=== PATIENT | male | born 1990 | race Hispanic/Latino ===

== ENCOUNTER 2016-10-10 06:24 | Inpatient (IN) | payer OTHER ==
[~2016-10-10] VITALS: Ht 177.8 cm; Wt 81.6 kg
[2016-10-10 07:56] LABS: ABSOLUTE BASOPHIL COUNT 0 /CUMM (0.0-0.2); ABSOLUTE EOSINOPHIL COUNT 0 /CUMM (0.0-0.7); ABSOLUTE LYMPH COUNT 0.6 /CUMM (1.2-3.4); ABSOLUTE MONOCYTE COUNT 0.4 /CUMM (0.10-0.60); BASOPHIL % 0.2 % (0.0-2.0); EOSINOPHIL % 0 % (0-5); HEMATOCRIT 42.2 % (42-52); MEAN CORPUSCULAR HGB CONC 33.4 G/DL (33.0-37.0); MEAN CORPUSCULAR VOLUME 86.8 FL (80.0-94.0); MEAN PLATELET VOLUME 9.2 FL (7.4-10.4); RBC DISTRIBUTION WIDTH 13.2 % (11.5-14.5); RED BLOOD CELL CT 4.87 /CUMM (4.70-6.10)
[2016-10-10 08:10] LABS: GRANULOCYTE % 91.7 % (42.2-75.2); PLATELET COUNT 249 /CUMM (130-400)
--- NOTE | 2016-10-10 08:46 | RADIOLOGY REPORT ---
EXAMINATION: XR ABDOMEN WITH PA CHEST CLINICAL INDICATION: Possible ingestion of a battery. COMPARISON: None TECHNIQUE: Chest, PA view. Abdomen, 2 views FINDINGS: CHEST: Lungs are well expanded and clear. Trachea is midline position. Cardiac silhouette is normal size. Mediastinal and hilar contours. The visualized bones are normal. ABDOMEN: A battery is present within the antral region of the stomach. Surgical clips are seen in the left pelvis. Bowel gas pattern is normal and there is no pneumoperitoneum. The visualized bones of the lumbar spine, pelvis and hips are unremarkable. IMPRESSION: The ingested battery is located in the gastric antrum.
--- NOTE | 2016-10-10 10:07 | ED PSYCH CRISIS CONSULTATION ---
Crisis Consult Basic Assessment Date of Consult: 10/10/16 Responsible Person/Accompanied By: self Insurance Authorization: Insurance #1: Insurance name: PAULA CLEMENTE Phone number: Policy number: [id number] Group number: [id number] Authorization number: ED Provider: Patient's ED Provider: OCHOA OLGUIN MD Primary Care Physician: Patient's PCP: BROCK SCHUMACHER MD PCP's Current Psychiatrist: none Chief Complaint: Psychiatric Related Complaint Patient's Quote: "I just feel hopeless and alone." Present Illness: Pt is a 25yo male who presented to the ED from the police department feeling anxious because he thought that his landlord or his girlfriend poisoned his marijuana. Pt reported that he and his girlfriend smoked marijuana last night. He explained that normally marijuana makes him feel calm, but this morning her woke up his heart was racing and he felt drugged. Pt went to the next door neighbors asking for help and they called the police. The police brought pt to the police station and pt presented as very anxious, so pt was brought voluntarily to the ED for evaluation. While pt was sitting in ED BH room 15 he was given the tv remote to choose a channel. He proceeded to take out one of the AAA batteries and swallow it. This clinician spoke with Pt's sitter Ana Cedeno about the incident. She explained that she gave pt the remote to choose a channel and then was going to take it back once he chose the channel. Shortly after she gave him the remote, he came out in the and sat of the floor. She asked him what was wrong and he paused and was silent for a moment. Then, he told her that he was depressed and needed to think. She asked him to return to his room and that they would further talk. He again was silent, and after a moment he told her that he took the battery out of the TV remote and swallowed it. When she asked him why he did that he replied "they told me to do it." However, there was no one in his room. This clinician spoke to ED MD Olguin about the battery and he informed the x-ray report identified that the battery is in pt's stomach and that it should be able to pass on its own with out surgical intervention. He further advised that pt's feces should be monitored for the passing of the battery and that pt should have repeat x-rays in 2 days. Upon Crisis eval pt was accompanied by his mother Joelle Judge who was providing support to pt. Pt presented as depressed and tearful at times. He denied hearing any voices, but did admit the swallowing the battery was a suicide attempt because he feels hopeless, helpless, and worthless. Pt says he feels alone, and isolated and feels like no one really loves him and that they are just out to hurt him. He expressed that he especially thinks that his landlord is trying to harm him and he no longer feels safe living there. He expressed that he thinks that his landlord put something in his marijuana vaporizer. Pt identified that he really does not have any7 close friends and a friend the he did have recently . Pt was close with his grandmother and he witnessed her of an asthma attack in 2010. Pt's father left the family about 1 year ago and pt has not spoken to his father since may. Pt's mom kicked him out of the home a few months ago because he refused to stop smoking marijuana. pt also has a conflicted relationship with his girlfriend who abuses alcohol and methamphetamine and he broke up with her last night. Mom explains that pt has a low self esteem because he struggles in life and has not achieved much as opposed to his brother and sister who are successful. Mom describes him as "simple minded." Pt has a high school education, works as a business applications specialist, walks to work because he has no car, and rents a room. Pt reports a hx of anxiety and depression, but no formal dx or tx. Mom reports that she has him go to counseling at [facility] in 2014 for a few months while she and pt's father were going through their separation. Pt reports that he began smoking marijuana at age 18 and smokes 1-3x a days and last smoked last night. Pt reports 4 years of sobriety from age 19 to 23. Pt also admits top alcohol use, but "very rarely." Pt denies any other substance use. Case reviewed with Dr. Gonzalez of Psychiatry and pt will be admitted to CPS. Patient's Address: [address] [place] [address] Other Phone Number: Who Do You Live With? Patient/Self Family/Informants Interviewed: Mother Allergies - Coded Allergies: No Known Allergies (10/10/16) Current Medications - No Known Home Medications Laboratory Results: Laboratory Tests 10/10/16 0738: Urine Opiates Screen < 100.00, Methadone Screen < 40, Barbiturate Screen < 60, Ur Phencyclidine Scrn < 6.00, Amphetamines Screen < 100, U Benzodiazepines Scrn < 85, Urine Cocaine Screen < 50, Urine Cannabis Screen > 80.00 H 10/10/16 0730: Anion Gap 14, Estimated GFR > 60, BUN/Creatinine Ratio 12.7, Glucose 122 H, Calcium 10.1, Total Bilirubin 0.8, AST 25, ALT 32, Alkaline Phosphatase 65, Total Protein 7.9, Albumin 4.8, Globulin 3.1, Albumin/Globulin Ratio 1.5, TSH & T3 &Free T4 Intrp 2.390, CBC w Diff NO MAN DIFF REQ, RBC 4.87, MCV 86.8, MCH 29.0, RDW 13.2, MPV 9.2, Gran % 91.7 H, Lymphocytes % 4.7 L, Monocytes % 3.4, Eosinophils % 0, Basophils % 0.2, Absolute Granulocytes 11.0 H, Absolute Lymphocytes 0.6 L, Absolute Monocytes 0.4, Absolute Eosinophils 0, Absolute Basophils 0, PUBS MCHC 33.4, Serum Alcohol < 10.0 Past History Past Medical History Cardiovascular: hypertension Psychiatric: anxiety Psychosocial History Strengths/Capabilities: Willing to accept tx, supportive mother Physical Limitations (Interventions): none reported Psychiatric Treatment History Psych Treatment Psychiatric Treatment Yes Inpatient Treatment No Outpatient Treatment Yes Location of Treatment [facility] Reason for Treatment parents divorce Dates of Treatment 2014 Response to Treatment unclear Diagnosis by History: none Substance Use/Abuse History Drug Use/Abuse Substances Used/Abused Yes Substance Used/Abused Marijuana First Use age 18 Last Used last night How much used/taken 1-3 How often daily For how long since age 18 Route of use smoke/vape Substance Abuse Treatment Substance Abuse Treatment Past Substance Abuse [place] No Inpatient Treatment No Outpatient Treatment No Current Mental Status Mental Status Orientation: Person, Place, Situation Affect: Anxious, Depressed, Hopeless, Sad Speech: Mumbled, Soft Neuro-vegetative: Anhedonia, Concentration Poor, Helpless, Loss of Interest, Sleep Disturbance Appearance Appearance- Dress/Hygiene: fairly groomed, good eye contact Behaviors Thought Process: Irrational, Loose Association Thought Content: Paranoid Memory: WNL Insight: Fair SI/HI Risk Assessment Past Suicidal Ideation/Attempts No Current Suicidal Ideation/Att Yes Past Homicidal Ideation/Att: No Current Homicidal Ideation/Attempts No Degree of Intent: made attempt in ED Danger To: Self Gravely Disabled: Poor Impulse Control, Poor Judgment Risk Factors: age (under 24/over 65), access to lethal means, high anxiety/ distress, SA/MH hospitalized, substance abuse, isolate/no social support, poor impulse control, lives alone, male, limited support Lethality Ratin (most severe) PTSD Checklist PTSD Done? patient declined (denies hx of trauma) ED Management Sitter: Yes Restraints: No DSM5/PS Stressors/Medical Prob Diagnosis' (DSM 5, Stressors, Medical): Depression with psychotic features f33.3, cannabis use d/o sev f12.20 Current GAF: 25 Departure Disposition Psych Medical Clearance Date: 10/10/16 Medically Cleared at: 929 Time Started: 929 Time Ended: 1030 Psychiatrist Consulted: Dr. Gonzalez Date Disposition Established: 10/10/16 Time Disposition Established: 1029 Plan for Disposition - Modality: Inpatient Psychiatry Rationale for Disposition: safety and stabilization of sx Type of IP Admission: Voluntary Referrals ENDY JAIN,BROCK LOERA (PCP/Family)
--- NOTE | 2016-10-10 11:29 | ED PSYCHIATRIC COMPLAINT ---
History of Present Illness General Chief Complaint: Psychiatric Related Complaint Stated Complaint: BIBA FOR ANXIETY Source: patient, family, old records Exam Limitations: no limitations Vital Signs & Intake/Output Vital Signs & Intake/Output Vital Signs Date Time Temp Pulse Resp B/P Pulse O2 O2 Flow FiO2 Ox Delivery Rate 10/10 0910 97.0 100 170/90 10/10 0745 98.7 96 20 158/84 100 Room Air 10/10 0632 97.6 112 20 166/91 98 Room Air Allergies Coded Allergies: No Known Allergies (10/10/16) Reconcile Medications No Known Home Medications Triage Note: PT BIBA FROM [facility]. PER EMS, PT HAS BEEN UNDER A LOT OF STRESS LATELY AND IS USING MARIJUANA TO COPE WITH HIS STRESS. PT STATES THAT HE WAS SMOKING WITH HIS GIRLFRIEND LAST NIGHT. PT STATES "I FEEL CALM WHEN I SMOKE THAT'S WHY I DO IT" PT CONTINUES, " AFTER SMOKING I WENT TO SLEEP, WHEN I WOKE UP MY HEART WAS RACING AND I FELT DRUGGED." THIS RN ASKS PT WHO DOES HE THINK WOULD DRUG HIM AND WHY. PT STATES "EITHER MY GIRLFRIEND OR CARMEN MILLARD, I LIVED WITH HIM AND WAS LATE WITH PAYING RENT." PT STATES THAT HE WAS SO ANXIOUS AFTER HE AWAKENED THIS AM THAT HE WENT TO HIS NEIGHBOR'S HOUSE TO ASK FOR HELP. PER PT HIS NEIGHBORS CALLED THE POLICE. PT WAS TAKEN TO POLICE STATION, BUT IS NOT PAPERED. PT COMPLAINED OF ANXIETY TO POLICE AND WAS SENT HERE WITH EMS. PT STATES HE HAS A HISTORY OF ANXIETY AND HIS MOTHER THINKS THAT HE IS DEPRESSED. PT STATES THAT HE JUST WANTS TO BETTER HIMSELF. Triage Nurses Notes Reviewed? yes Onset: 2 weeks Duration: week(s):, continues in ED, getting worse, waxing and waning Timing: recent history Severity: severe Associated Symptoms: anxiety, impaired concentration, insomnia HPI: 2 weeks prior to admission patient complains of increasing anxiety insomnia difficulty concentrating with episodes of palpitations diaphoresis and shortness of breath. He has been smoking marijuana to help with his symptoms of anxiety. He denies fever chills nausea vomiting diarrhea abdominal pain chest pain shortness of breath headache dysuria rash bleeding suicidal ideation homicidal ideation hallucination. Past History Travel History Traveled to [place] past 21 day No Medical History Any Pertinent Medical History? see below for history Cardiovascular: hypertension Psychiatric: anxiety Surgical History Surgical History: non-contributory Psychosocial History What is your primary language Malay Tobacco Use: Never used ETOH Use: denies use Illicit Drug Use: marijuana Family History Hx Contributory? No Review of Systems Review of Systems Constitutional: Reports: see HPI, malaise. EENTM: Reports: no symptoms. Respiratory: Reports: no symptoms. Cardiovascular: Reports: see HPI, palpitations. GI: Reports: no symptoms. Genitourinary: Reports: no symptoms. Musculoskeletal: Reports: no symptoms. Skin: Reports: no symptoms. Neurological/Psychological: Reports: see HPI, anxiety, confusion, emotional problems. Hematologic/Endocrine: Reports: no symptoms. Immunologic/Allergic: Reports: no symptoms. All Other Systems: Reviewed and Negative Physical Exam Physical Exam General Appearance: well developed/nourished, alert, awake, anxious, severe distress Head: atraumatic, normal appearance Eyes: Bilateral: normal appearance, PERRL, EOMI. Ears, Nose, Throat: normal pharynx, normal ENT inspection, hearing grossly normal Neck: normal inspection, supple, full range of motion, no midline tenderness Respiratory: normal breath sounds, chest non-tender, no respiratory distress, quiet respiration, lungs clear Cardiovascular: regular rate/rhythm, normal peripheral pulses, norml femoral pulses equa Gastrointestinal: normal bowel sounds, soft, non-tender, no organomegaly Extremities: normal range of motion, no ligament instability Neurological/Psychiatric: no motor/sensory deficits, awake, agitated, alert, anxious, graphite grinder II-XII nml as tested, oriented x 3 Appearance/Memory/Insight: impaired insight Behavoir/Eye Contact/Speech: cooperative, increased rate of speech Thoughts/Hallucinations: no apparent hallucination Skin: intact, normal color, warm/dry SAD PERSONS SAD PERSONS Response Value Male Sex? yes 1 Depression/Hopelessness? yes 2 Excessive Ethanol/Drug Use? yes 1 Rational Thinking Loss? yes 2 Single//? yes 1 Organized/Serious Attempt yes 2 Social Support? has support 0 Stated Future Intent? yes 2 Total 11 SAD PERSONS Done? yes Progress Differential Diagnosis: drug intoxication, drug overdose, drug withdrawal, electrolyte abnormality, hypoglycemia Plan of Care: Orders Procedure Date/time Status Regular Diet 10/10 B Active Admit to inpatient psych 10/10 1118 Active ED CRISIS PSYCH CONSULT 10/10 0900 Active TSH REFLEX 10/10 0719 Complete ETHANOL 10/10 718 Complete COMPREHENSIVE METABOLIC PANEL 10/10 718 Complete CBC WITHOUT DIFFERENTIAL 10/10 718 Complete URINE DRUG SCREEN FOR ER ONLY 10/10 707 Complete EKG 10/10 707 Active Laboratory Tests 10/10/16 0738: Urine Opiates Screen < 100.00, Methadone Screen < 40, Barbiturate Screen < 60, Ur Phencyclidine Scrn < 6.00, Amphetamines Screen < 100, U Benzodiazepines Scrn < 85, Urine Cocaine Screen < 50, Urine Cannabis Screen > 80.00 H 10/10/16 0730: Anion Gap 14, Estimated GFR > 60, BUN/Creatinine Ratio 12.7, Glucose 122 H, Calcium 10.1, Total Bilirubin 0.8, AST 25, ALT 32, Alkaline Phosphatase 65, Total Protein 7.9, Albumin 4.8, Globulin 3.1, Albumin/Globulin Ratio 1.5, TSH & T3 &Free T4 Intrp 2.390, CBC w Diff NO MAN DIFF REQ, RBC 4.87, MCV 86.8, MCH 29.0, RDW 13.2, MPV 9.2, Gran % 91.7 H, Lymphocytes % 4.7 L, Monocytes % 3.4, Eosinophils % 0, Basophils % 0.2, Absolute Granulocytes 11.0 H, Absolute Lymphocytes 0.6 L, Absolute Monocytes 0.4, Absolute Eosinophils 0, Absolute Basophils 0, PUBS MCHC 33.4, Serum Alcohol < 10.0 Diagnostic Imaging: Viewed by Me: Radiology Read. Discussed w/RAD: Radiology Read. Radiology Impression: The ingested battery is located in the gastric antrum. Comments: While handling remote control patient swallowed AAA battery in suicide attempt due to stress of pain inflicted on him by others. Departure Departure Time of Disposition: 1100 Disposition: STILL A PATIENT Condition: Stable Clinical Impression Primary Impression: Depression with suicidal ideation Secondary Impressions: Intentional ingestion of batteries Qualifiers: Encounter type: initial encounter Qualified Code: T18.9XXA - Foreign body of alimentary tract, part unspecified, initial encounter Marijuana abuse Referrals: ENDY JAIN,BROCK LOERA (PCP/Family) Departure Forms: Customer Survey General Discharge Information Prescriptions: Current Visit Scripts No Known Home Medications Psych Admission Note Psychiatric Admission: I have seen and evaluated CARMEN AWAD. I have also reviewed all the pertinent lab results and diagnostic results. CARMEN AWAD will be admitted to our inpatient Psychiatric unit for treatment and care.
--- NOTE | 2016-10-10 13:18 | IP CRISIS DIAG ASSESS PSYCH ---
Diagnostic Assessment Basic Assessment Insurance Authorization: Insurance #1: Insurance name: PAULA CLEMENTE Phone number: [phone] Policy number: [id number] Group number: [id number] Authorization number: [id number] Mildred approved 5 days from 10/10/16 to 10/14/16 with review 10/15/16. The case will be assigned and that person will call Saturday to do the UR Primary Care Physician: Patient's PCP: BROCK SCHUMACHER MD PCP's Patient's Quote: "I just feel hopeless and alone." Present Illness: Pt is a 25yo male who presented to the ED from the police department feeling anxious because he thought that his landlord or his girlfriend poisoned his marijuana. Pt reported that he and his girlfriend smoked marijuana last night. He explained that normally marijuana makes him feel calm, but this morning her woke up his heart was racing and he felt drugged. Pt went to the next door neighbors asking for help and they called the police. The police brought pt to the police station and pt presented as very anxious, so pt was brought voluntarily to the ED for evaluation. While pt was sitting in ED BH room 15 he was given the tv remote to choose a channel. He proceeded to take out one of the AAA batteries and swallow it. This clinician spoke with Pt's sitter Ana Cedeno about the incident. She explained that she gave pt the remote to choose a channel and then was going to take it back once he chose the channel. Shortly after she gave him the remote, he came out in the and sat of the floor. She asked him what was wrong and he paused and was silent for a moment. Then, he told her that he was depressed and needed to think. She asked him to return to his room and that they would further talk. He again was silent, and after a moment he told her that he took the battery out of the TV remote and swallowed it. When she asked him why he did that he replied "they told me to do it." However, there was no one in his room. This clinician spoke to ED MD Butler about the battery and he informed the x-ray report identified that the battery is in pt's stomach and that it should be able to pass on its own with out surgical intervention. He further advised that pt's feces should be monitored for the passing of the battery and that pt should have repeat x-rays in 2 days. Upon Crisis eval pt was accompanied by his mother Joelle Judge who was providing support to pt. Pt presented as depressed and tearful at times. He denied hearing any voices, but did admit the swallowing the battery was a suicide attempt because he feels hopeless, helpless, and worthless. Pt says he feels alone, and isolated and feels like no one really loves him and that they are just out to hurt him. He expressed that he especially thinks that his landlord is trying to harm him and he no longer feels safe living there. He expressed that he thinks that his landlord put something in his marijuana vaporizer. Pt identified that he really does not have any7 close friends and a friend the he did have recently . Pt was close with his grandmother and he witnessed her of an asthma attack in 2010. Pt's father left the family about 1 year ago and pt has not spoken to his father since may. Pt's mom kicked him out of the home a few months ago because he refused to stop smoking marijuana. pt also has a conflicted relationship with his girlfriend who abuses alcohol and methamphetamine and he broke up with her last night. Mom explains that pt has a low self esteem because he struggles in life and has not achieved much as opposed to his brother and sister who are successful. Mom describes him as "simple minded." Pt has a high school education, works as a business analytics intern, walks to work because he has no car, and rents a room. Pt reports a hx of anxiety and depression, but no formal dx or tx. Mom reports that she has him go to counseling at [facility] in 2014 for a few months while she and pt's father were going through their separation. Pt reports that he began smoking marijuana at age 18 and smokes 1-3x a days and last smoked last night. Pt reports 4 years of sobriety from age 19 to 23. Pt also admits top alcohol use, but "very rarely." Pt denies any other substance use. Case reviewed with Dr. Gharaibeh of Psychiatry and pt will be admitted to CPS. Patient's Address: [address] [place] [address] Other Phone Number: Who Do You Live With? Patient/Self Feel Safe Where You Live? No Feel Safe in Your Relationship No If No, Please Elaborate: pt thinks that his landlord and his family are trying to hurt him Marital Status: single Do You Have Children? No Primary Language? German Language(s) Spoken At Home: German Family/Informants Interviewed: Mother Allergies - Coded Allergies: No Known Allergies (10/10/16) Current Medications - No Known Home Medications Lab Results: Laboratory Tests 10/10/16 0738: Urine Opiates Screen < 100.00, Methadone Screen < 40, Barbiturate Screen < 60, Ur Phencyclidine Scrn < 6.00, Amphetamines Screen < 100, U Benzodiazepines Scrn < 85, Urine Cocaine Screen < 50, Urine Cannabis Screen > 80.00 H 10/10/16 0730: Anion Gap 14, Estimated GFR > 60, BUN/Creatinine Ratio 12.7, Glucose 122 H, Calcium 10.1, Total Bilirubin 0.8, AST 25, ALT 32, Alkaline Phosphatase 65, Total Protein 7.9, Albumin 4.8, Globulin 3.1, Albumin/Globulin Ratio 1.5, TSH & T3 &Free T4 Intrp 2.390, CBC w Diff NO MAN DIFF REQ, RBC 4.87, MCV 86.8, MCH 29.0, RDW 13.2, MPV 9.2, Gran % 91.7 H, Lymphocytes % 4.7 L, Monocytes % 3.4, Eosinophils % 0, Basophils % 0.2, Absolute Granulocytes 11.0 H, Absolute Lymphocytes 0.6 L, Absolute Monocytes 0.4, Absolute Eosinophils 0, Absolute Basophils 0, PUBS MCHC 33.4, Serum Alcohol < 10.0 Toxicology Screen Completed? Yes Results: positive Symptoms of Use: paranoia Past History Abuse/Trauma History Trauma History/Current Trauma: Denies Legal History Current Legal Status: none Have you ever been arrested? No Number of Arrests: 0 Psychosocial History Strengths/Capabilities: Willing to accept tx, supportive mother Physical Limitations (Interventions): none reported Psychiatric Treatment History Psych Treatment Psychiatric Treatment Yes Inpatient Treatment No Outpatient Treatment Yes Location of Treatment [facility] services [facility] Reason for Treatment parents divorce Dates of Treatment 2014 Response to Treatment unclear Diagnosis by History: none Risk Factors: age (under 24/over 65), access to lethal means, high anxiety/ distress, SA/MH hospitalized, substance abuse, isolate/no social support, poor impulse control, lives alone, male, limited support Substance Use/Abuse History Drug Use/Abuse minimum 12mo Hx Substances Used/Abused Yes Substance Used/Abused Marijuana First Use age 18 Last Used last night How much used/taken 1-3 How often daily For how long since age 18 Route of use smoke/vape Substance Abuse Treatment Substance Abuse Treatment Past Substance Abuse [place] No Inpatient Treatment No Outpatient Treatment No Sexual History Sexually Active Yes # of partners 1 Sexual Orientation Heterosexual Sexual Concerns: none reported Education History Highest Level of Education: high school/GED Preferred Learning Style: visual Current Mental Status Mental Status Orientation: Person, Place, Situation Affect: Anxious, Depressed, Hopeless, Sad Speech: Mumbled, Soft Neuro-vegetative: Anhedonia, Concentration Poor, Helpless, Loss of Interest, Sleep Disturbance Appearance Appearance- Dress/Hygiene: fairly groomed, good eye contact Behaviors Thought Process: Irrational, Loose Association Thought Content: Paranoid Memory: WNL Insight: Fair SI/HI Risk Assessment - Minimum 6mo History- Past Suicidal Ideation/Attempts No Current Suicidal Ideation/Att Yes Past Homicidal Ideation/Att: No Current Homicidal Ideation/Attempts No Degree of Intent: made attempt in ED Danger To: Self Gravely Disabled: Poor Impulse Control, Poor Judgment Risk Factors: age (under 24/over 65), access to lethal means, high anxiety/ distress, SA/MH hospitalized, substance abuse, isolate/no social support, poor impulse control, lives alone, male, limited support Lethality Ratin (most severe) Needs/Init TX Plan/Goals: safety and stabilization of sx, individual group and family therapy, med eval AUDIT-C Questionnaire: AUDIT-C Questionnaire: Response Value ETOH use in the past year Monthly or less 1 # drinks typical/day 1 or 2 0 6 or > drinks per occasion Less than monthly 1 Total 2 DSM5/PS Stressors/Medical Prob Diagnosis' (DSM 5, Stressors, Medical): Depression with psychotic features f33.3, cannabis use d/o sev f12.20 Current GAF: 25
--- NOTE | 2016-10-10 13:53 | SOCIAL WORKER SOCIAL HX PSYCH ---
Social History Basic Assessment Insurance Authorization: Insurance #1: Insurance name: PAULA CLEMENTE Phone number: Policy number: [id number] Group number: [id number] Authorization number: Curr Source of Income/Entitlements: employment Primary Care Physician: Patient's PCP: BROCK SCHUMACHER MD PCP's Present Problem: Pt is a 25yo male who presented to the ED from the police department feeling anxious because he thought that his landlord or his girlfriend poisoned his marijuana. Pt reported that he and his girlfriend smoked marijuana last night. He explained that normally marijuana makes him feel calm, but this morning her woke up his heart was racing and he felt drugged. Pt went to the next door neighbors asking for help and they called the police. The police brought pt to the police station and pt presented as very anxious, so pt was brought voluntarily to the ED for evaluation. While pt was sitting in ED BH room 15 he was given the tv remote to choose a channel. He proceeded to take out one of the AAA batteries and swallow it. This clinician spoke with Pt's sitter Ana Cedeno about the incident. She explained that she gave pt the remote to choose a channel and then was going to take it back once he chose the channel. Shortly after she gave him the remote, he came out in the and sat of the floor. She asked him what was wrong and he paused and was silent for a moment. Then, he told her that he was depressed and needed to think. She asked him to return to his room and that they would further talk. He again was silent, and after a moment he told her that he took the battery out of the TV remote and swallowed it. When she asked him why he did that he replied "they told me to do it." However, there was no one in his room. This clinician spoke to ED MD Butler about the battery and he informed the x-ray report identified that the battery is in pt's stomach and that it should be able to pass on its own with out surgical intervention. He further advised that pt's feces should be monitored for the passing of the battery and that pt should have repeat x-rays in 2 days. Upon Crisis eval pt was accompanied by his mother Joelle Judge [phone] who was providing support to pt. Pt presented as depressed and tearful at times. He denied hearing any voices, but did admit the swallowing the battery was a suicide attempt because he feels hopeless, helpless, and worthless. Pt says he feels alone, and isolated and feels like no one really loves him and that they are just out to hurt him. He expressed that he especially thinks that his landlord is trying to harm him and he no longer feels safe living there. He expressed that he thinks that his landlord put something in his marijuana vaporizer. Pt identified that he really does not have any7 close friends and a friend the he did have recently . Pt was close with his grandmother and he witnessed her of an asthma attack in 2010. Pt's father left the family about 1 year ago and pt has not spoken to his father since may. Pt's mom kicked him out of the home a few months ago because he refused to stop smoking marijuana. pt also has a conflicted relationship with his girlfriend who abuses alcohol and methamphetamine and he broke up with her last night. Mom explains that pt has a low self esteem because he struggles in life and has not achieved much as opposed to his brother and sister who are successful. 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 Pt reports a hx of anxiety and depression, but no formal dx or tx. Mom reports that she has him go to counseling at [facility] in 2014 for a few months while she and pt's father were going through their separation. Pt reports that he began smoking marijuana at age 18 and smokes 1-3x a days and last smoked last night. Pt reports 4 years of sobriety from age 19 to 23. Pt also admits top alcohol use, but "very rarely." Pt denies any other substance use. Case reviewed with Dr. Gonzalez of Psychiatry and pt will be admitted to CPS. Primary Language? Maldivian Language(s) Spoken At Home: Maldivian Living Situation Rents or Owns Home? rents Other Living Arrangement: rents a room Feel Safe Where You Are Living No Feel Safe in Relationships? No Comments: pt thinks his landlord and his family are trying to hurt him Allergies - Coded Allergies: No Known Allergies (10/10/16) Current Medications - No Known Home Medications Past History Past Medical History Cardiovascular: hypertension Psychiatric: anxiety Past Surgical History Surgical History: non-contributory /Family History Place/Country of Origin: [facility] Childhood Family Constellation: raised by bot Mom and Dad and brotherand sister Primary Childhood Caretakers: father, mother Family Life During Childhood: "Really nice. I loved to play outside in the snow, but i just wish my father spent more times with me." mom adds that pt's father would a lot and when he was home he would watch TV and not spend time with the children. DCF Involvement? No Mother's Age (Current/): 52 Relationship w/Mother: close and supportive Father's Age (Current/): 57 Relationship w/Father: Father left the family a year ago and pt has not spoken to him since OCT Any Sibling(s)? Yes Sibling's Gender(s)/Age(s): male Sibling 1:, female Sibling 2: Relationship w/Sibling(s): "good" Relationship w/Friends: pt does not identify any friends other than his girlfriend Family Psych/Sub Abuse/Add Hx: family hx of depression. Pt's maternal grandfather was suicidal Abuse/Trauma History Trauma History/Current Trauma: Denies Legal History Current Legal Status: none Have you ever been arrested No Number of Arrests: 0 Hx of Juvenile Legal Charges? No Hx of Adult Legal Charges? No Psychosocial History Primary Support System: significant other, mother, cousin Strengths/Capabilities: Willing to accept tx, supportive mother Weaknesses: having difficulty coping with stress and uses marijuana for coping Physical Limitations (Interventions): none reported Last Physical: 3-4 years ago History of Seizures? No History of Blackouts? No ADL Limitations: none reported [place]/Social/Peer Relations family and girlfriend Meaningful Activities: listening to music, snowboarding, hiking, camping Childhood Baptism: Yazidi Current Protestant Affiliation: Yazidi Is Spirituality Important to You? yes Patient's Ethnicity: (Albanian), Nepalese, Faroese, Vietnamese Cultural/Ethnic Issues: none reported Are There Developmental Issues? Yes If Yes, Explain: was not able to talk until after age 5. was in special education in school, has difficulty reading Milestones Achieved: fine motor, gross motor Psychiatric Treatment History Psych Treatment Inpatient Treatment No Outpatient Treatment Yes Location of Treatment [facility] [place] Reason for Treatment parents divorce Dates of Treatment 2015 Response to Treatment unclear Precipitating Factors: Pt is a 25yo male who presented to the ED from the police department feeling anxious because he thought that his landlord or his girlfriend poisoned his marijuana. Pt reported that he and his girlfriend smoked marijuana last night. He explained that normally marijuana makes him feel calm, but this morning her woke up his heart was racing and he felt drugged. Pt went to the next door neighbors asking for help and they called the police. The police brought pt to the police station and pt presented as very anxious, so pt was brought voluntarily to the ED for evaluation. While pt was sitting in ED room 15 he was given the tv remote to choose a channel. He proceeded to take out one of the AAA batteries and swallow it. This clinician spoke with Pt's sitter Ana Cedeno about the incident. She explained that she gave pt the remote to choose a channel and then was going to take it back once he chose the channel. Shortly after she gave him the remote, he came out in the and sat of the floor. She asked him what was wrong and he paused and was silent for a moment. Then, he told her that he was depressed and needed to think. She asked him to return to his room and that they would further talk. He again was silent, and after a moment he told her that he took the battery out of the TV remote and swallowed it. When she asked him why he did that he replied "they told me to do it." However, there was no one in his room. This clinician spoke to ED MD Butler about the battery and he informed the x-ray report identified that the battery is in pt's stomach and that it should be able to pass on its own with out surgical intervention. He further advised that pt's feces should be monitored for the passing of the battery and that pt should have repeat x-rays in 2 days. Upon Crisis eval pt was accompanied by his mother Joelle Judge who was providing support to pt. Pt presented as depressed and tearful at times. He denied hearing any voices, but did admit the swallowing the battery was a suicide attempt because he feels hopeless, helpless, and worthless. Pt says he feels alone, and isolated and feels like no one really loves him and that they are just out to hurt him. He expressed that he especially thinks that his landlord is trying to harm him and he no longer feels safe living there. He expressed that he thinks that his landlord put something in his marijuana vaporizer. Pt identified that he really does not have any7 close friends and a friend the he did have recently . Pt was close with his grandmother and he witnessed her of an asthma attack in 2010. Pt's father left the family about 1 year ago and pt has not spoken to his father since may. Pt's mom kicked him out of the home a few months ago because he refused to stop smoking marijuana. pt also has a conflicted relationship with his girlfriend who abuses alcohol and methamphetamine and he broke up with her last night. Mom explains that pt has a low self esteem because he struggles in life and has not achieved much as opposed to his brother and sister who are successful. 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 Pt reports a hx of anxiety and depression, but no formal dx or tx. Mom reports that she has him go to counseling at [facility] in 2014 for a few months while she and pt's father were going through their separation. Pt reports that he began smoking marijuana at age 18 and smokes 1-3x a days and last smoked last night. Pt reports 4 years of sobriety from age 19 to 23. Pt also admits top alcohol use, but "very rarely." Pt denies any other substance use. Case reviewed with Dr. Gonzalez of Psychiatry and pt will be admitted to CPS. Current Student Services Coordinator: none Treatment of Prior Episodes: denies Diagnosis: none Psychodynamic Issues: wittnessed GM in 2010, feels abandoned by father Risk Factors: age (under 24/over 65), access to lethal means, high anxiety/ distress, SA/MH hospitalized, substance abuse, isolate/no social support, poor impulse control, lives alone, male, limited support Substance Use/Abuse History Drug Use/Abuse Substance Used/Abused Marijuana First Use age 18 Last Used last night How much used/taken 1-3 How often daily For how long since age 18 Route of use smoke/vape Have Had Periods of Sobriety? Yes Explain: age [age] Relapse History? Yes Explain: relapsed age 23 Have You Ever Attended AA? No Do You Attend AA Currently? No Do You Have a Sponsor? 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 of Jobs in Last 5 Years: 3 Attendance: Normal Performance: Good Comments: currently busses [employer] at [employer], previously worked on a [employer] History Have You Been in The ? No Current Mental Status Problem List: 1. Depression with suicidal ideation 2. Intentional ingestion of batteries 3. Marijuana abuse Mental Status Orientation: Person, Place, Situation Affect: Anxious, Depressed, Hopeless, Sad Speech: Mumbled, Soft Neuro-vegetative: Anhedonia, Concentration Poor, Helpless, Loss of Interest, Sleep Disturbance Appearance Appearance- Dress/Hygiene: fairly groomed, good eye contact Behaviors Thought Process: Irrational, Loose Association Thought Content: Paranoid Memory: WNL Insight: Fair SI/HI Risk Assessment Past Suicidal Ideation/Attempts No Current Suicidal Ideation/Att Yes Past Homicidal Ideation/Att: No Current Homicidal Ideation/Attempts No Degree of Intent: made attempt in ED Danger To: Self Gravely Disabled: Poor Impulse Control, Poor Judgment Risk Factors: Age (under 24 or over 65), High Anxiety/Distress, Isolated/no social suppor, Lives alone, Male, Poor impulse control, Substance Abuse Lethality Ratin (most severe) - Conclusion and Recommendations for treatment - and discharge planning Summary: Pt is a 25yo male who presented to the ED from the police department feeling anxious because he thought that his landlord or his girlfriend poisoned his marijuana. Pt reported that he and his girlfriend smoked marijuana last night. He explained that normally marijuana makes him feel calm, but this morning her woke up his heart was racing and he felt drugged. Pt went to the next door neighbors asking for help and they called the police. The police brought pt to the police station and pt presented as very anxious, so pt was brought voluntarily to the ED for evaluation. While pt was sitting in ED BH room 15 he was given the tv remote to choose a channel. He proceeded to take out one of the AAA batteries and swallow it. This clinician spoke with Pt's sitter Ana Cedeno about the incident. She explained that she gave pt the remote to choose a channel and then was going to take it back once he chose the channel. Shortly after she gave him the remote, he came out in the and sat of the floor. She asked him what was wrong and he paused and was silent for a moment. Then, he told her that he was depressed and needed to think. She asked him to return to his room and that they would further talk. He again was silent, and after a moment he told her that he took the battery out of the TV remote and swallowed it. When she asked him why he did that he replied "they told me to do it." However, there was no one in his room. This clinician spoke to ED MD Butler about the battery and he informed the x-ray report identified that the battery is in pt's stomach and that it should be able to pass on its own with out surgical intervention. He further advised that pt's feces should be monitored for the passing of the battery and that pt should have repeat x-rays in 2 days. Upon Crisis eval pt was accompanied by his mother Joelle Judge who was providing support to pt. Pt presented as depressed and tearful at times. He denied hearing any voices, but did admit the swallowing the battery was a suicide attempt because he feels hopeless, helpless, and worthless. Pt says he feels alone, and isolated and feels like no one really loves him and that they are just out to hurt him. He expressed that he especially thinks that his landlord is trying to harm him and he no longer feels safe living there. He expressed that he thinks that his landlord put something in his marijuana vaporizer. Pt identified that he really does not have any7 close friends and a friend the he did have recently . Pt was close with his grandmother and he witnessed her of an asthma attack in 2010. Pt's father left the family about 1 year ago and pt has not spoken to his father since may. Pt's mom kicked him out of the home a few months ago because he refused to stop smoking marijuana. pt also has a conflicted relationship with his girlfriend who abuses alcohol and methamphetamine and he broke up with her last night. Mom explains that pt has a low self esteem because he struggles in life and has not achieved much as opposed to his brother and sister who are successful. 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 Pt reports a hx of anxiety and depression, but no formal dx or tx. Mom reports that she has him go to counseling at [facility] in 2014 for a few months while she and pt's father were going through their separation. Pt reports that he began smoking marijuana at age 18 and smokes 1-3x a days and last smoked last night. Pt reports 4 years of sobriety from age 19 to 23. Pt also admits top alcohol use, but "very rarely." Pt denies any other substance use. Case reviewed with Dr. Gonzalez of Psychiatry and pt will be admitted to CPS.
[2016-10-10 14:21] VITALS: BP 136/65
--- NOTE | 2016-10-10 14:23 | History & Physical ---
General Information and HPI MD Statement: I have seen and personally examined CARMEN AWAD and documented this H&P. The patient is a 25 year old M who presented with a patient stated chief complaint of anxiety/depression. Source of Information: patient Exam Limitations: no limitations History of Present Illness: The patient is a 25 yo male who presented in the [place] ED with progressive increased anxiety and depression (as per his mother). He had been smoking marijuana with his girlfriend the evening prior. He had woken up and stated his heart was racing and he felt "drugged" (concern that his girlfriend or landlord may have drugged him). He presented to a neighbor and asked for help. Police & EMS were called. He also noted insomnia. While in the ED the patient was given a TV remote control and he subsequently removed 1 AAA battery and swallowed it. He denies any abdominal discomfort at present. The battery was located in his stomach on radiograph. He has no prior psychiatric history. Stressors include girlfriend who uses alcohol and other drugs. Allergies/Medications Allergies: Coded Allergies: No Known Allergies (10/10/16) Home Med list No Known Home Medications Past History Travel History Traveled to [place] past 21 day No Medical History Neurological: NONE EENT: MYOPIA Cardiovascular: NONE, hypertension Respiratory: asthma (CHILDHOOD ASTHMA (NOT NOW)) Gastrointestinal: NONE Hepatic: NONE Renal: NONE Musculoskeletal: NONE Psychiatric: anxiety, depression Endocrine: NONE Blood Disorders: NONE Cancer(s): NONE SURGICAL TECHNOLOGIST/Reproductive: LEFT VARICOCOELE SURG History of MRSA: No History of VRE: No History of CDIFF: No Isolation History: Standard Surgical History Surgical History: LEFT VARICOELE Past Family/Social History Family History Relations & Conditions if any MOTHER (MOTHER WITH DIABETES, ASTHMA). . PATERNAL GRANDFATHER (METASTATIC CANCER TO BONE (?PROSTATE)). GRANDMOTHER (ASTHMA). Psychosocial History Where do you live? 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 EENTM: Denies: no symptoms. Cardiovascular: Reports: palpitations (HAD PALP WHEN CAME IN). Denies: no symptoms. Respiratory: Denies: no symptoms. GI: Denies: no symptoms. Genitourinary: Denies: no symptoms. Musculoskeletal: Denies: no symptoms. Skin: Denies: no symptoms. Neurological/Psychological: Denies: no symptoms. Hematologic/Endocrine: Denies: no symptoms. Immunologic/Allergic: Denies: no symptoms. All Other Systems: Reviewed and Negative Exam & Diagnostic Data Last 24 Hrs of Vital Signs/I&O Vital Signs Date Time Temp Pulse Resp B/P Pulse O2 O2 Flow FiO2 Ox Delivery Rate 10/10 1617 89 151/89 10/10 1421 99.1 93 136/65 10/10 1246 98.7 90 22 123/66 100 Room Air 10/10 1142 97.2 94 20 140/80 100 Nasal 2.0L Cannula 10/10 0910 97.0 100 170/90 10/10 0745 98.7 96 20 158/84 100 Room Air 10/10 0632 97.6 112 20 166/91 98 Room Air Intake & Output 10/10 1600 10/10 0800 10/10 0000 Intake Total 0 Output Total Balance 0 Intake, Oral 0 Patient 81.647 kg 81.647 kg Weight Physical Exam General Appearance Alert, Oriented X3, Cooperative, No Acute Distress Skin No Rashes, No Breakdown, No Significant Lesion HEENT Atraumatic, PERRLA, EOMI, Mucous Membr. moist/pink Neck Supple, No JVD, No thryomegaly, +2 Carotid Pulse wo Bruit, No LAD Cardiovascular Regular Rate, Normal S1, Normal S2, No Murmurs Lungs Clear to Auscultation, Normal Air Movement Abdomen Normal Bowel Sounds, Soft, No Tenderness, No Hepatospenomegaly, No Masses Neurological Exam Findings: Normal Gait, Normal Speech, Strength at 5/5 X4 Ext, Normal Tone, Sensation Intact, Cranial Nerves 3-12 NL, Reflexes 2+ Cranial Nerves II through XII: INTACT Extremities No Clubbing, No Cyanosis, No Edema, Normal Pulses, No Tenderness/ Swelling Vascular Normal Pulses, Pulses Symmetrical Last 24 Hrs of Labs/Jun: Laboratory Tests 10/10/16 0738: Urine Opiates Screen < 100.00, Methadone Screen < 40, Barbiturate Screen < 60, Ur Phencyclidine Scrn < 6.00, Amphetamines Screen < 100, U Benzodiazepines Scrn < 85, Urine Cocaine Screen < 50, Urine Cannabis Screen > 80.00 H 10/10/16 0730: Anion Gap 14, Estimated GFR > 60, BUN/Creatinine Ratio 12.7, Glucose 122 H, Calcium 10.1, Total Bilirubin 0.8, AST 25, ALT 32, Alkaline Phosphatase 65, Total Protein 7.9, Albumin 4.8, Globulin 3.1, Albumin/Globulin Ratio 1.5, TSH & T3 &Free T4 Intrp 2.390, CBC w Diff NO MAN DIFF REQ, RBC 4.87, MCV 86.8, MCH 29.0, RDW 13.2, MPV 9.2, Gran % 91.7 H, Lymphocytes % 4.7 L, Monocytes % 3.4, Eosinophils % 0, Basophils % 0.2, Absolute Granulocytes 11.0 H, Absolute Lymphocytes 0.6 L, Absolute Monocytes 0.4, Absolute Eosinophils 0, Absolute Basophils 0, PUBS MCHC 33.4, Serum Alcohol < 10.0 Assessment/Plan Assessment: #Anxiety/Depression- patient describes some progression of symptoms. No prior history of treatment. Plan: Admit to [facility]/Psychiatry as above for evaluation. #Battery Ingestion- ?impulsive. Patient does not appear to be psychotic. In stomach on initial radiograph. Should pass normally through GI tract. Plan: Will watch stool for battery. If no battery retrieved in 2 days will obtain another film to locate. Observe for GI symptoms (may have some lactose intolerance). #Substance Abuse/Use- does use marijuana regularly, however no alcohol or other drugs at present. Plan: Will observe. #H/O Varicocele- and repair in past. Plan: No follow-up needed. As Ranked By This Provider Problem List: 1. Depression with suicidal ideation 2. Intentional ingestion of batteries Qualifiers Encounter type: initial encounter Qualified Code: T18.9XXA - Foreign body of alimentary tract, part unspecified, initial encounter 3. Marijuana abuse Miscellaneous Miscellaneous Documentation Attending Case Discussed With: INDIRA JAIN,ROBERT Primary Care Physician: ENDY JAIN,BROCK LOERA Patient sees these Specialists NONE Level of Patient Care: BEREKET Melvin Consults Needed: Consulting Physician: NONE Attending MD Review Statement Attending Statement Attending MD Statement: examined this patient, reviewed EMR data (avail), discussed with nursing, amended to note Attending Assessment/Plan: The patient was seen and examined in afternoon today.
[2016-10-10 16:17] VITALS: BP 151/89
[2016-10-10 19:33] VITALS: BP 138/72
[2016-10-11] VITALS (7 sets, daily range): BP systolic 140–152; BP diastolic 80–92
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
--- NOTE | 2016-10-11 16:22 | SOCIAL WORKER TX PLAN PSYCH ---
Treatment Plan - Please Document: - Evidence that there is ongoing collaboration between - the patient and the interdisciplinary team, - including the patient's active participation and - responsibility for engaging in the treatment regimen, - and that the treatment plan is individualized and - relevant to the patient's conditions. - Treatment plan should reflect documentation indicating - that all active therapeutic efforts are included. Strengths/Capabilities: Willing to accept tx, supportive mother Physical Limitations (Interventions): none reported Patient Identified Trmt Goals: "I want to work on myself" Discharge Plan: [facility] Problem/Goals #1 Problem #1: depression Goal (Short Term): Patient will explore medications to assist with elevating depressed mood. Goal (English Faculty Member): Patient will identify and practice 2 coping skills. Interventions: Patient will be offered medication management with the TITLE CLERK, groups on symptom management, coping skills, art therapy, relaxation skills, accupuncture. Equine Intern will help patient identify strengths and resources for coping. Equine Intern will hold family meeting and plan for aftercare. Modalities: group/ individual. Problem/Goals #2 Problem #2: cannabis use disorder Goal (Short Term): Patient will identify the consequences of using Goal (Usp): patient will identify a relapse prevention plan Interventions: patient will be offered groups on symptom management, coping skills, AA, relapse prevention. Equine Intern will explore pros and cons to use and what goals are. Equine Intern will assist in aftercare planning. Modalities: group/ individual DSM5/PS Stressors/Medical Prob Diagnosis' (DSM 5, Stressors, Medical): Depression with psychotic features f33.3, cannabis use d/o sev f12.20 Current GAF: 25 Treatment Team - Responsibilities of members of the treatment team include: - Medication Management- MD or TITLE CLERK - Medication Administration and Monitoring- Nurse - Group Therapy- Occupational Therapist - 1:1 Therapy,Disch Planning,family involvement-Equine Intern
[2016-10-12] VITALS (8 sets, daily range): BP systolic 125–148; BP diastolic 76–78
--- NOTE | 2016-10-12 11:45 | RADIOLOGY REPORT ---
EXAMINATION: XR ABDOMEN CLINICAL INDICATION: Identify placement of battery ingested. COMPARISON: 10/10/2016 TECHNIQUE: One view, 2 images of the abdomen FINDINGS: A radiopaque battery overlies the central abdomen, fairly similar in positioning to the prior radiograph, although the orientation differs. Exact positioning cannot be ascertained, although this could remain within the stomach. No dilated loops of bowel. The lung bases are clear. Surgical clips overlie the left pelvis. IMPRESSION: Radiopaque battery overlies the central abdomen, in the same position as the prior study with slightly changed orientation. This could be within any portion of the bowel at this location.
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
--- NOTE | 2016-10-12 14:08 | SOCIAL WORKER PROG NOTE PSYCH ---
Social Work Progress Note Progress Note Attempted to call Sebastian's Mother again and left another voicemail. Met with Sebastian, who presented as calm and happy today. Stated that this morning he woke up with negative thoughts, heart pumping fast. He feels it was his anxiety. He said he tried practicing some breathing and it seemed to help. He was thinking about various losses at the time. He talks alot about the loss of his grandmother, who he was very close to. She in 2010. He misses her alot. He said that since this morning he has been participating in groups. He showed me the picture he did in art therapy of a katty. He talks about loving himself more so that he can love others. I told him I am trying to schedule a family meeting with Mom, but she has not returned my call. I asked him to reach out to her as well so we can get a meeting scheduled for Saturday. He was happy that family was here last night playing games with him. He talked again about his desire to return to his Mother's home. He feels badly that she had kicked him out due to the marijuana use. He wants to show her that he wants to do better things with his life. Talked about getting back to snowboarding and getting back to singing. Said he would like to join the choir at [employer]. He enjoys singing. He believes that his marijuana use had stopped him from enjoying more things and from reaching his goals. He seems to have some positive friendships with other men who are supportive. Denies any auditory or visual hallucinations today. Rates his anxiety at a 4 (10 being worst) and a 4 for depression as well. He is very interested in aftercare with [facility] and seems vested in making lifestyle changes. We talked about meditation and how he can work on that each day.
--- NOTE | 2016-10-12 16:32 | PN- Att Addend ---
Attending Addendum Attending Brief Note Spoke with LITERACY COACH staff. Patient has not passed battery and X-ray still in similar place. OK to give Miralax and follow-up Saturday with another X-ray if battery not passed over weekend.
[2016-10-13] VITALS (8 sets, daily range): BP systolic 146–156; BP diastolic 79–96
--- NOTE | 2016-10-13 13:22 | CP SOUTH PROGRESS NOTE PSYCH ---
Psych (Inpt) Progress Note Progress Note Include the following elements, when applicable: Involvement in the active treatment of the patient with behavioral observations of the patient and the patient's response to the treatment. Review of the ongoing treatment process in the context of the treatment plan. Indication of how multi-disciplinary staff members are carrying out the treatment plan. Plans for future interventions and recommendations for revision of the treatment plan. Liaison with other physicians/providers. Progress Note: Pt reports that has not passed the battery yet. Denies abdominal pain or cramping at this time. Feels better overall as recent visit from family remided him "how much love there is in this life." He has struggled for years with depression especially in light of deaths of some friends. Mother to visit today. Denies SI or HI. Denies manic or psychotic sx. Current Medications Sig/Garrett Start time Last Medication Dose Route Stop Time Status Admin Acetaminophen 650 MG Q4P PRN 10/10 1300 AC PO Al Hydroxide/Mg 30 ML Q4-6 PRN PRN 10/10 1300 AC Hydroxide PO Escitalopram Oxalate 10 MG 0810/12 1300 AC 10/13 PO 1046 Gabapentin 300 MG Q8 10/11 1030 AC 10/13 PO 0710 Lorazepam 1 MG Q2P PRN 10/11 1045 AC PO Lorazepam 2 MG Q2P PRN 10/11 1045 AC PO Magnesium Hydroxide 30 ML AT BEDTIME PRN 10/10 1300 AC PO Multivitamins 1 TAB 0800 10/12 0800 AC 10/13 PO 0949 Olanzapine 2.5 MG 0800,0 10/11 1100 AC 10/13 PO 0949 Polyethylene Glycol 17 GM 1000 10/12 1215 AC 10/13 PO 0949 Vital Signs Date Time Temp Pulse Resp B/P Pulse O2 O2 Flow FiO2 Ox Delivery Rate 10/13 1224 94 146/79 10/13 1219 94 146/79 10/13 1028 97.2 94 150/96 10/13 0849 97.2 94 150/96 10/12 1952 77 148/77 10/12 1950 97.3 77 148/77 10/12 1542 79 125/78 10/12 1540 79 125/78 MSE Appears younger than stated age. Cooperative behavior, good, appropriate eye contact. Nl speech rate and prosody. Not pressured. No psychomotor retardation or agitation. Mood better Affect euthymic, bright and slightly elevated, appropriate, non-liable. Linear and goal directed thought process, no racing thoughts. Denies SI or HI. Does not appear to be responding to internal stimuli. Denies AVHs, paranoia, or delusions. I/J: limited A/P: Pt with hx of MDD s/p SA with battery which is currently still in ?stomach with improved mood. - Continue current medication regimen - Monitor closely VS and for sx of abdominal pain given corrosive material inside abdomen - Encourage intergration into the milieu
[2016-10-14] VITALS (8 sets, daily range): BP systolic 147–154; BP diastolic 77–93
--- NOTE | 2016-10-14 12:18 | CP SOUTH PROGRESS NOTE PSYCH ---
Psych (Inpt) Progress Note Progress Note Include the following elements, when applicable: Involvement in the active treatment of the patient with behavioral observations of the patient and the patient's response to the treatment. Review of the ongoing treatment process in the context of the treatment plan. Indication of how multi-disciplinary staff members are carrying out the treatment plan. Plans for future interventions and recommendations for revision of the treatment plan. Liaison with other physicians/providers. Progress Note: Pt in good mood today. Was brought some adult coloring books with tatoo designed by his brother. In group today, they did an exercise of journalling about some nice things from children. He asked this casualty underwriter to read over some of the entries -- cubscots, sleding and snowboarding, and playing with brother-- which he enjoyed. He denies SI or HI. Current Medications Sig/Garrett Start time Last Medication Dose Route Stop Time Status Admin Acetaminophen 650 MG Q4P PRN 10/10 1300 AC PO Al Hydroxide/Mg 30 ML Q4-6 PRN PRN 10/10 1300 AC Hydroxide PO Escitalopram Oxalate 10 MG 10/12 1300 AC 10/14 PO 0926 Gabapentin 300 MG Q8 10/11 1030 AC 10/14 PO 0717 Lisinopril 2.5 MG DAILY 10/15 1000 UNVr PO Lorazepam 1 MG Q2P PRN 10/11 1045 AC 10/13 PO 1959 Lorazepam 2 MG Q2P PRN 10/11 1045 AC PO Magnesium Hydroxide 30 ML AT BEDTIME PRN 10/10 1300 AC PO Multivitamins 1 TAB 10/12 0800 AC 10/14 PO 0926 Olanzapine 2.5 MG 0800,10/11 1100 AC 10/14 PO 0926 Polyethylene Glycol 17 GM 1000 10/12 1215 AC 10/14 PO 0926 Vital Signs Date Time Temp Pulse Resp B/P Pulse O2 O2 Flow FiO2 Ox Delivery Rate 10/14 0752 97.6 87 150/93 10/14 0751 97.6 87 150/93 10/13 1950 98.5 100 156/81 10/13 1940 98.5 100 156/10/13 1630 96 148/84 10/13 1617 96 148/84 10/13 1224 94 146/79 10/13 1219 94 146/79 MSE Appears as stated age. Cooperative behavior, good, appropriate eye contact. Nl speech rate and prosody. No psychomotor retardation or agitation. Mood really good Affect euthymic, full range, appropriate, non-liable. Linear and goal directed thought process. Denies SI or HI. Does not appear to be responding to internal stimuli. Denies AVHs, paranoia, or delusions. I/J: limited A/P: Pt with MDD who swallow a battery now with improved mood. Pt is oddly related. Unclear what baseline and lifelong pattern is but is concerning for ASD vs learned culture from family. - Pt had bowel movement, not sure if passed the battery - May need XR tomorrow to assess where it is, if still in the abdomen - Continue current medication regimen - Encourage socialization with peers
[2016-10-15 07:48] VITALS: BP 149/79
[2016-10-15 07:50] VITALS: BP 149/79
--- NOTE | 2016-10-15 09:20 | RADIOLOGY REPORT ---
EXAMINATION: XR ABDOMEN CLINICAL INDICATION: Battery ingested on 10/10/2016. COMPARISON: Prior radiographs from 10/10/2016 and 10/12/2016. TECHNIQUE: Abdomen radiograph, AP view (KUB) FINDINGS: Bowel gas pattern is normal. The battery is no longer identified within the abdomen (or pelvis). Surgical clips are present within the pelvis. Bones are unremarkable. IMPRESSION: The ingested battery has passed through the gastrointestinal tract.
--- NOTE | 2016-10-15 10:17 | CP SOUTH PROGRESS NOTE PSYCH ---
Psych (Inpt) Progress Note Progress Note Include the following elements, when applicable: Involvement in the active treatment of the patient with behavioral observations of the patient and the patient's response to the treatment. Review of the ongoing treatment process in the context of the treatment plan. Indication of how multi-disciplinary staff members are carrying out the treatment plan. Plans for future interventions and recommendations for revision of the treatment plan. Liaison with other physicians/providers. Progress Note: [I discussed this patient's progress to date, current mental status, treatment process in the context of the treatment plan, and discharge planning with staff/ team in the daily morning inpatient team meeting. I also met with the patient myself in individual session.] SUBJECTIVE: "I feel really good." OBJECTIVE: Current Medications Sig/Garrett Start time Last Medication Dose Route Stop Time Status Admin Acetaminophen 650 MG Q4P PRN 10/10 1300 AC PO Al Hydroxide/Mg 30 ML Q4-6 PRN PRN 10/10 1300 AC Hydroxide PO Escitalopram Oxalate 10 MG 10/12 1300 AC 10/15 PO 0950 Gabapentin 300 MG Q8 10/11 1030 AC 10/15 PO 0655 Lisinopril 2.5 MG DAILY 10/15 1000 AC PO Lorazepam 1 MG Q2P PRN 10/11 1045 AC 10/13 PO 1959 Lorazepam 2 MG Q2P PRN 10/11 1045 AC PO Magnesium Hydroxide 30 ML AT BEDTIME PRN 10/10 1300 AC PO Multivitamins 1 TAB 0810/12 0800 AC 10/15 PO 0950 Olanzapine 2.5 MG 0800,0 10/11 1100 AC 10/15 PO 0950 Polyethylene Glycol 17 GM 1000 10/12 1215 AC 10/15 PO 0950 Vital Signs Date Time Temp Pulse Resp B/P Pulse O2 O2 Flow FiO2 Ox Delivery Rate 10/15 0836 Room Air 10/15 0750 98.1 95 149/79 10/15 0748 98.1 95 149/79 10/14 1954 98.1 90 154/89 10/14 1947 98.1 90 154/89 10/14 1629 87 154/77 10/14 1621 87 154/77 10/14 1222 99 147/87 10/14 1215 99 147/87 10/15/16 ABD XR: FINDINGS: Bowel gas pattern is normal. The battery is no longer identified within the abdomen (or pelvis). Surgical clips are present within the pelvis. Bones are unremarkable. IMPRESSION: The ingested battery has passed through the gastrointestinal tract. ASSESSMENT: Chart, progress notes, labs, VS, ABD XR (10/15/16), and medication list were reviewed. This radio script writer spoke to Dr. العلي concerning ABD XR results from today. Informed Dr. العلي that to date nursing has not found the battery in the patient 's stool. Per Dr. العلي, who reviewed XR with radiology, ABD XR identified no presence of battery in GI tract and per ABD XR result, the battery passed through the GI tract. Per Dr. العلي, the patient does not need GI consult/work- up given result of ABD XR, and is medically stable for discharge with no further work-up. Met with patient today on the date of discharge. Patient presented A&Ox4. Speech was normal in rate, tone and volume. Mood was "really good." Affect was calm and full-range. He had no complaints. He reported anxiety of 5/10 (10 being the worst) and depression of 3/10 (10 being the worst). He denied feeling hopeless, helpless, worthless and guilty. He reported positive effect of utilizing coping skills such as meditation, mindfulness exercises, attending milieu groups, reading and talking with peers. He denied passive and active suicidal ideation, plans and intent. He denied homicidal ideation. He reported protective factors of "my mom" and "my future." He stated and also believed he will not harm himself or others. Thought process was concrete and goal-directed. There was no evidence of paranoia or walter delusions. He denied auditory and visual hallucinations. He denied urges and cravings to use substances. Thought content was appropriate. Cognition was grossly intact. He reported feeling positive about returning home to live with his mother, who he identified as a positive support. Patient looked forward to following up with [facility] for continued management of psychiatric symptoms and medication. He was also scheduled an appointment with Dr. Nuñez for a PCP evaluation and f/u with HTN. He reported tolerating all medications well and denied untoward medication effects. He reported feeling safe and ready for discharge. PLAN: 1. Discharge today to home with mother. 2. F/u with IOP intake on 09/15/16 at 2PM. 3. F/u for PCP appointment with Dr. Nuñez on 10/25/16 at 2:20PM for further management of HTN. 4. In the event of an emergency call 911/go to nearest emergency department. Patient verbalized understanding of instruction. 5. All discharge prescriptions were printed, reviewed with the patient and his mother, and provided to patient on discharge.
--- NOTE | 2016-10-15 10:25 | SOCIAL WORKER PROG NOTE PSYCH ---
Social Work Progress Note Progress Note Called Sebastian's Mother to schedule a family meeting today. Mom will be available later this afternoon and will get back to me about 3pm being a good time. She mentioned that Sebastian was looking good, but seemed a little anxious after a phone call that he received from his ex-girlfriend. This girl is apparently upset with Sebastian for trying to seperate from her and she doesn't want to take no for an answer. Mom reports that she is a drug user and that she is no good for Sebastian. Sebastian may consider filing a restraining order. Mom acknowledged that Sebastian will return to her home after discharge. Met with Sebastian briefly to get a sense of how he was doing today. He reported that he was sleeping well. Rates anxiety at a 5 and depression at a 4, on a scale of 1-10 10 being worst. He feels his anxiety increased after the phone call from the ex-girlfriend and he is anxious about the battery residing inside of him. He has been using various coping skills to manage his anxiety. Talked about deep breathing, art, playing games, and keeping himself busy. He mentioned that he may file a restraining order on the ex-girlfriend. He is trying to work on himself and take care of himself and doesn't want her in his life right now. He is looking forward to going back to him Mother's home and looking forward to finding a new job. Informed him that we are looking at discharging him today, probably after the family meeting. He seemed ok with that plan. Mom came in for a meeting at 2:30pm. Radha Mcneill APRN was also part of this meeting. Mom was supportive of Sebastian returning home to her house and helping him. She is hoping he can stay away from using cannabis and alcohol. She talked about how depression and anxiety run in her family. Both of her parents suffered from mental health disorders. She supports Sebastian looking for another job and taking time away from his current job to do so. Discussed healthy coping skills to use for anxiety/ depression. 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 Reviewed current medications. Talked about following up with a primary care physician for the high blood pressure. Radha ended up getting him an appt. with Dr. Smith in [place] though [facility]. Intake for IOP is scheduled for tomorrow at 2pm. Left with Mom home after the meeting.
[2016-10-15] MEDS ORDERED: LISINOPRIL2.5 M1 PO (11:06)
[2016-10-15] MEDS ORDERED: OLANZAPINE2.5 M1 PO (11:06)
[2016-10-15] MEDS ORDERED: ONE DAILY MULT1 EAC2 PO (11:06)
[2016-10-15] MEDS ORDERED: GABAPENTIN300 M2 PO (11:06)
[2016-10-15] MEDS ORDERED: LEXAPRO10 M1 PO (11:06)
[2016-10-15 12:31] VITALS: BP 153/73
[2016-10-15 12:32] VITALS: BP 153/78
--- NOTE | 2016-10-15 14:24 | DISCHARGE SUMMARY REPORT-PSYCH ---
Visit Information Visit Dates/Diagnosis' Admission Date: 10/10/16 Discharge Date: 10/15/16 Reason for Admission: Paranoia; suicidal ideation and attempt by ingestion of AAA battery in [facility] Emergency Department s/p cannabis use. Psy Discharge Primary Diag: Unspecified depressive disorder Psy Discharge Secondary Diag: Substance induced psychosis; Cannabis use disorder , severe; Alcohol use disorder; R/O PTSD; HTN Hospital Course Significant Lab Findings: Lab Urine Cannabis Screen > 80.00 NG/ML H 10/10/16 0738 10/10/16 EKG: Sinus Rhythm, with rate of 81. QRSD: 102; QT: 332; QTc 386; QRS: -9 ; T: 35. 10/12/16 ABD XR: FINDINGS: A radioplaque battery overlies the central abdomen, fairly similar in positioning to prior radiograph, although the orientation differs. Exact positioning cannot be ascertained, although this could remain within the stomach. No dilated loops of bowel. The lung bases are clear. Surgical clips overlie the left pelvis. IMPRESSION:Radioplaque battery overlies the central abdomen, in the same position as the prior study with slightly changed orientation. This could be within any portion of the bowel at this location. 10/15/16 ABD XR: FINDINGS: Bowel gas pattern is normal. The battery is no longer identified within the abdomen (or pelvis). Surgical clips are present within the pelvis. Bones are unremarkable. IMPRESSION: The ingested battery has passed through the gastrointestinal tract. Course Complications: None. Consultations: The patient was seen for admission history and physical by manager managing Dr. Nils العلي. Please see his note for additional information. Dr. Nils العلي followed the patient's medical care during course of hospitalization secondary to AAA battery ingestion in ED on 10/10/16. Dr. العلي recommended repeat abdominal XR on 10/12/16 and 10/15/16 due to no evidence of battery passing via stool to identify the location of the battery insideof the patient. On 10/15/16, abdominal XR showed no evidence of battery in the gastrointestinal tract. Abdominal XR noted that the ingested battery passed through the gastroinstestinal tract. This communications writer personally spoke to Dr. العلي on 10/15/16 and informed him that although the XR suggested this, there was no evidence that the battery passed in his stool per nursing reports who had been examiningg his feces daily after every BM. Per Dr. العلي, there was no evidence of the battery on abdominal XR and the patient did not need further GI work-up. Per Dr. العلي, the patient was medically cleared for discharge home. Allergies: Coded Allergies: No Known Allergies (10/10/16) Hospital Course/TX Response: The patient was monitored on the unit for safety, suicidal ideation, paranoia, mood, passing of AAA battery and alcohol withdrawal given unclear history of alcohol consumption. During the hospital course, there was no evidence of acute alcohol withdrawal as the patient did not score on CIWA or report subjective signs of alcohol withdrawal. The patient participated in multimodal treatments on the unit. His blood pressure was noted to be persistently elevated and he was started on Lisinopril 2.5mg daily. He was started on Zyprexa 2.5mg twice daily for paranoid thoughts. Lexapro 10mg was started every morning for depression and anxiety. Gabapentin 300mg three times daily was also started for anxiety. The patient tolerated all medications well and denied untoward medication effects. During the hospital course, the patient's mood and effect improved. Suicidal ideation and paranoia remitted. There was no evidence of alcohol withdrawal. Abominal XR on 10/15/16 suggested that the ingested AAA battery passed through his GI tract. Dr. Nils العلي was consulted, who reviewed ABD XR with radiology, and per his evaluation the patient was medically cleared for discharge with no need for inpatient/outpatient GI work-up. A family meeting was held with the patient, his mother, this communications writer and Estee Benjamin LCSW. The patient' s treatment progress, medication regimen, psychiatric/substance abuse history, level of safety, and discharge planning were reviewed. The patient's mother's primary concerns were surrounding the patient's use of alcohol and cannabis. She was in favor of the patient returning to her home and with him following-up with [facility] for continued outpatient management of medications and psychiatric symptoms. The patient was also in favor of this discharge plan. On the date of discharge, 10/15/16, the patient presented alert and oriented to person, place, time and situation. Speech was normal in rate, tone and volume. Mood was "really good." Affect was calm and full-range. He had no complaints. He reported anxiety of 5/10 (10 being the worst) and depression of 3/10 (10 being the worst). He denied feeling hopeless, helpless, worthless and guilty. He reported positive effect of utilizing coping skills such as meditation, mindfulness exercises, attending milieu groups, reading and talking with peers. He denied passive and active suicidal ideation, plans and intent. He denied homicidal ideation. He reported protective factors of "my mom" and "my future." He stated and also believed he will not harm himself or others. Thought process was concrete and goal-directed. There was no evidence of paranoia or walter delusions. He denied auditory and visual hallucinations. He denied urges and cravings to use substances. Thought content was appropriate. Cognition was grossly intact. He reported feeling positive about returning home to live with his mother, who he identified as a positive support. Patient looked forward to following up with [facility] for continued management of psychiatric symptoms and medication. He was also scheduled an outpatient appointment with JESSICA Nuñez for a PCP evaluation and f/u with HTN given that he has no current PCP. He reported tolerating all medications well and denied untoward medication effects. He reported feeling safe and ready for discharge. Discharge HBIPS - Tobacco Use Treatment Offered Post DC Medications Offered: NA-No Tob Use >30 days Post DC Tobacco Treatment Plan: NA-No Tobacco use >30days - EtOH/Drug Use D/O Treatment Offered Post DC Medications Offered: Ref Med EtOH/Drug Use D/O Post DC EtOH/SubAbuse TX Plan: [facility]use/Dual [facility] Appt Date: 10/16/16 Program Appt Time: 1400 Metabolic Screening - Screen if on a Neuroleptic Medication - Metabolic screening should include: - Blood Pressure, BMI, Glucose or Hgb A1c, & a - Lipid profile from within the past 365 days. Metabolic Screening () Not Applicable, patient not on a neuroleptic. OR ([X]) Patient on a neuroleptic(s) . Enter below results for Glucose or Hemoglobin A1C, and lipid panel if obtained during the last 365 days. BMI: 25.800 Blood Pressure: 153/78 Laboratory Results (If applicable): Lab Cholesterol 177 MG/DL 10/10/16 0730 Cholesterol/HDL Ratio 4 % 10/10/16 0730 Glucose 122 mg/dL H 10/10/16 0730 HDL Cholesterol 49 mg/dL 10/10/16 0730 LDL Cholesterol, Calc 113 mg/dL 10/10/16 0730 Triglycerides 75 mg/dL 10/10/16 0730 Discharge Instructions General Discharge Information Discharge Medications: Discharge Medications- (Dose, route, freq, indication): HOME MEDICATION LIST START taking these NEW Home Medications: Lisinopril Dose: ORAL, DAILY for Qty: 14 Printed (Lisinopril) 2.5 MG 2.5 Milligram Hypertension Refills: 0 TABLET Take 1 tablet by mouth every morning. Last Taken:10/15/16 Time: 12pm Gabapentin Dose: ORAL, THREE TIMES DAILY Qty: 42 Printed (Gabapentin) 300 MG 300 Milligram for anxiety Refills: 0 CAPSULE Take 1 capsule by mouth three times daily (8AM/2PM/8PM). Last Taken:10/15/16 Time:8am Escitalopram Oxalate Dose: ORAL, DAILY @8 AM for Qty: 14 Printed (Lexapro) 10 MG 10 Milligram depression/anxiety Refills: 0 TABLET Take 1 tablet by mouth every morning. Last Taken:10/15/16 Time:10am Olanzapine Dose: ORAL, 0800,2200 for Qty: 28 Printed (Olanzapine) 2.5 MG 2.5 Milligram clear thoughts/mood Refills: 0 TABLET stability Take 1 tablet by mouth every morning and at bedtime. Last Taken:10/15/16 Time:10am Multivitamin (One Dose: ORAL, DAILY @8 AM for Qty: 14 Printed Daily Multivitamin) 1 Tablet vitamin support Refills: 0 1 EACH TABLET Last Taken:10/15/16 Time:10am Multiple Neuroleptics: ([X]) Not Applicable OR Document below three failed attempts at monotherapy, or a plan to taper to monotherapy, or augmentation of Clozapine. () Patient's Diet: Regular. Patient's Activity: No restrictions. DC Disposition: Patient to return to home with mother. Recommendations: The patient was advised to please take his medications as prescribed. He was advised to abstain from all substances. He was advised to follow-up with scheduled outpatient appointments (please see below in referral sections). He was advised not to stop psychiatric or medical medications until otherwise advised by IOP and PCP medical providers. He was advised that in the event of an emergency to call 911/go to nearest emergency department. The patient verbalized understanding of all instructions. Referred To: [facility] [address] [place] [address] [phone] IOP intake appointment scheduled on 10/16/16 at 2PM. [facility]: Dr. Nuñez [facility] [address] [place] [address] [phone] Appointment scheduled on 10/25/16 at 2:20PM with Dr. Nuñez. Copies To: Dr. Nuñez; [facility]
== END 2016-10-15 15:16 | DRG 881 ==
LOC: ENRESERVDT → ENRESERVTM → ERH 06:24 → ERHI 11:18 → CP SOUTH 11:18 → ENPENDDIS 11:18 → CP SOUTH 13:59
PROVIDERS: Emergency Medicine; ADMIT Psychiatry & Neurology Psychiatry
DX: F32.9 Major depressive disorder, single episode, unspecified (principal); I10 Essential (primary) hypertension; F12.959 Cannabis use, unspecified with psychotic disorder, unspecified; F10.10 Alcohol abuse, uncomplicated
CPT/HCPCS: 74000; 74022; 80307; 93005; 93010; G0480